=== PATIENT | female | born 1995 | race Two or more races ===

== ENCOUNTER 2022-04-07 14:28 | Emergency (ER) | payer SELFPAY ==
[2022-04-07] MEDS ORDERED: Ketorolac 30 MG/ML SDV IM STA (15:42)
[2022-04-07] MEDS ORDERED: Dexamethasone 4 MG Tab PO STA (16:56)
== END 2022-04-07 17:22 | disposition home or self-care (01) ==
LOC: MW.ED 14:28
DX: J03.90 Acute tonsillitis, unspecified (principal)
CPT/HCPCS: 36415; 86308; 87651; 96372; 99283; J1885; J8540

== ENCOUNTER 2022-06-09 13:41 | Emergency (ER) | payer SELFPAY ==
[2022-06-09] MEDS ORDERED: Acetaminophen/HYDROcodone 325-5 MG Tab PO ONE (16:25)
== END 2022-06-09 16:46 | disposition home or self-care (01) ==
LOC: MW.ED 13:41
DX: T33.822A Superficial frostbite of left foot, initial encounter (principal); T33.821A Superficial frostbite of right foot, initial encounter; X31.XXXA Exposure to excessive natural cold, initial encounter
CPT/HCPCS: 99283; A9270

== ENCOUNTER 2023-04-24 08:41 | Emergency (ER) | payer MEDICAID | END 2023-04-24 11:46 | disposition home or self-care (01) | LOC: MW.ED 08:41 | DX: O20.0 Threatened abortion (principal); Z3A.12 12 weeks gestation of pregnancy; Z79.82 Long term (current) use of aspirin | CPT/HCPCS: 36415; 76801; 76801-26; 86850; 86900; 86901; 99282; 99284; J2790 ==

== ENCOUNTER 2023-09-03 11:00 | Emergency (ER) | payer MEDICAID ==
[2023-09-03] MEDS: Sodium Chloride 0.9% 1,000 ML IV ONE (11:33)
[2023-09-03 11:48] LABS: BASOPHILS ABSOLUTE AUTO 0.04 K/uL (0.00-0.20); BASOPHILS PERCENT AUTO 0.5 % (0.0-1.0); EOSINOPHILS ABSOLUTE AUTO 0.14 K/uL (0.00-0.45); EOSINOPHILS PERCENT AUTO 1.8 % (0.0-6.0); HEMATOCRIT 32.4 % (37.0-47.0); HEMOGLOBIN 10.6 g/dL (12.0-16.0); IMMATURE GRAN ABSOLUTE AUTO 0.04 K/uL (0.00-0.05); IMMATURE GRAN PERCENT AUTO 0.5 % (0.0-0.4); LYMPHOCYTES ABSOLUTE AUTO 1.55 K/uL (1.00-4.80); LYMPHOCYTES PERCENT AUTO 19.5 % (24.0-44.0); MEAN CORPUSCULAR HEMOGLOBIN 26.4 pg (28.0-32.0); MEAN CORPUSCULAR HGB CONC 32.7 g/dL (32.0-36.0); MEAN CORPUSCULAR VOLUME 80.8 fL (83.0-99.0); MONOCYTES ABSOLUTE AUTO 0.26 K/uL (0.00-0.80); MONOCYTES PERCENT AUTO 3.3 % (0.0-8.0); NEUTROPHILS ABSOLUTE AUTO 5.93 K/uL (1.80-7.70); NEUTROPHILS PERCENT AUTO 74.4 % (41.0-71.0); PLATELET COUNT,PLT 290 K/uL (150-400); RED BLOOD CELL COUNT 4.01 M/uL (4.10-5.30); WHITE BLOOD CELL COUNT,WBC 7.96 K/uL (3.9-11.3)
[2023-09-03 11:58] LABS: INR 0.95 (0.86-1.11); PTT,PARTIAL THROMBOPLSTIN TIME 30.5 SEC (23.9-30.7)
[2023-09-03 12:16] LABS: A/G RATIO 0.6 (0.9-1.6); ALBUMIN 2.6 g/dL (3.4-5.0); BILIRUBIN TOTAL 0.4 mg/dL (0.2-1.0); CALCIUM 8.6 mg/dL (8.5-10.1); CARBON DIOXIDE,CO2 21.9 mmol/L (21.0-32.0); CREATININE 0.6 mg/dL (0.6-1.0); EST CRCL DRUG DOSING (CG) 131.85 mL/min; MAGNESIUM 1.8 mg/dL (1.8-2.4); POTASSIUM,K 4.1 mmol/L (3.5-5.1); PROTEIN TOTAL,TP 6.9 g/dL (6.4-8.2); TSH ULTRASENSITIVE 0.95 uIU/mL (0.36-3.74)
[2023-09-03] MEDS: Iopamidol 755 Mg/ML 100 ML Bottle IVPUSH ONE (13:23)
== END 2023-09-03 13:52 | disposition home or self-care (01) ==
LOC: MW.ED 11:00
DX: R51.9 Headache, unspecified (principal); R20.2 Paresthesia of skin; Z79.82 Long term (current) use of aspirin
CPT/HCPCS: 36415; 70496; 80053; 82947; 83735; 84443; 85025; 85610; 85730; 96360; 99284; J7030; Q9967

== ENCOUNTER 2023-10-15 07:23 | Observation (INO) | payer MEDICAID ==
[2023-10-15] MEDS ORDERED: Ondansetron 4 MG/2 ML SDV IVPUSH PRN (09:08)
[2023-10-15] MEDS ORDERED: Misoprostol 200 MCG Tab PO PRN (09:08)
[2023-10-15] MEDS ORDERED: Nalbuphine 10 MG/0.5 ML Syringe IVPUSH PRN (09:08)
[2023-10-15] MEDS ORDERED: Sodium Chloride 0.9% 20 ML SDV IV PRN (09:08)
[2023-10-15] MEDS ORDERED: Lidocaine 1% 50 ML MDV INJECT PRN (09:08)
[2023-10-15] MEDS ORDERED: Water For Irrigation,Sterile 1,000 ML Container IRR PRN (09:08)
[2023-10-15] MEDS ORDERED: Tranexamic Acid IN NACL,ISO-OS 1,000 MG in Premix Bag 1 BAG IV PRN (09:08)
[2023-10-15] MEDS ORDERED: Carboprost Tromethamine 250 MCG/1 mL Vial IM PRN (09:08)
[2023-10-15] MEDS ORDERED: Methylergonovine 0.2 MG/1 ML Amp IM PRN (09:08)
[2023-10-15] MEDS ORDERED: Sodium Chloride 0.9% 2.5 ML Syringe FLUSH PRN (09:08)
[2023-10-15] MEDS ORDERED: Sodium Chloride 0.9% 10 ML Syringe FLUSH PRN (09:08)
[2023-10-15] MEDS ORDERED: Oxytocin/0.9 % Sodium Chloride 30 UNIT/500 ML BAG IV SCH (09:15)
[2023-10-15] MEDS: Lactated Ringers 1,000 ML IV SCH (09:19)
[2023-10-15 10:03] LABS: APPEARANCE,URINE CLEAR; COLOR,URINE YELLOW; GLUCOSE,URINE NEGATIVE (NEGATIVE); KETONES,URINE >=80 mg/dL (NEGATIVE); LEUKOCYTE ESTERASE,URINE NEGATIVE (NEGATIVE); NITRITE,URINE NEGATIVE (NEGATIVE); OCCULT BLOOD,URINE NEGATIVE (NEGATIVE); PH,URINE 6.5 (5.0-8.0); PROTEIN,URINE TRACE mg/dL (NEGATIVE); UROBILINOGEN,URINE 0.2 EU/dL (<2.0)
[2023-10-15 10:03] LABS: HEMATOCRIT 33.9 % (37.0-47.0); HEMOGLOBIN 11.2 g/dL (12.0-16.0); MEAN CORPUSCULAR HEMOGLOBIN 26.4 pg (28.0-32.0); MEAN CORPUSCULAR VOLUME 79.8 fL (83.0-99.0); PLATELET COUNT,PLT 229 K/uL (150-400); RED BLOOD CELL COUNT 4.25 M/uL (4.10-5.30)
[2023-10-15 10:07] LABS: BILIRUBIN,URINE SMALL (NEGATIVE)
[2023-10-15 10:25] LABS: A/G RATIO 0.6 (0.9-1.6); ALBUMIN 2.4 g/dL (3.4-5.0); BILIRUBIN TOTAL 0.4 mg/dL (0.2-1.0); CALCIUM 8.4 mg/dL (8.5-10.1); CARBON DIOXIDE,CO2 19.4 mmol/L (21.0-32.0); CREATININE 0.8 mg/dL (0.6-1.0); EST CRCL DRUG DOSING (CG) 98.01 mL/min; POTASSIUM,K 3.8 mmol/L (3.5-5.1); PROTEIN TOTAL,TP 6.8 g/dL (6.4-8.2)
[2023-10-15] MEDS ORDERED: Acetaminophen 500 MG Tab PO PRN (13:33)
== END 2023-10-15 14:00 | disposition home or self-care (01) ==
LOC: MW.OB 07:23 → MW.OBCHECK 07:23 → MW.OB 09:08 → MW.OBCHECK 10:18
PROVIDERS: ADMIT Obstetrics & Gynecology; ATTEND Obstetrics & Gynecology
DX: E86.0 Dehydration (principal)
CPT/HCPCS: 36415; 59025; 80053; 81003; 84112; 85027; 86592; 86850; 86900; 86901; 96360; 96361; G0378; J7120; 99221

== ENCOUNTER 2023-10-19 17:59 | Inpatient (IN) | payer MEDICAID ==
[2023-10-19] MEDS ORDERED: Ondansetron 4 MG/2 ML SDV IVPUSH PRN (18:12)
[2023-10-19] MEDS ORDERED: Carboprost Tromethamine 250 MCG/1 mL Vial IM PRN (18:12)
[2023-10-19] MEDS ORDERED: Methylergonovine 0.2 MG/1 ML Amp IM PRN ×2 (18:12→23:32)
[2023-10-19] MEDS ORDERED: Sodium Chloride 0.9% 20 ML SDV IV PRN (18:12)
[2023-10-19] MEDS ORDERED: Sodium Chloride 0.9% 10 ML Syringe FLUSH PRN (18:12)
[2023-10-19] MEDS ORDERED: Water For Irrigation,Sterile 1,000 ML Container IRR PRN (18:12)
[2023-10-19] MEDS ORDERED: Sodium Chloride 0.9% 2.5 ML Syringe FLUSH PRN (18:12)
[2023-10-19] MEDS ORDERED: Tranexamic Acid IN NACL,ISO-OS 1,000 MG in Premix Bag 1 BAG IV PRN ×2 (18:12→23:32)
[2023-10-19] MEDS ORDERED: Butorphanol 2 MG/ML SDV IVPUSH PRN (18:12)
[2023-10-19] MEDS ORDERED: Misoprostol 200 MCG Tab PO PRN (18:12)
[2023-10-19 18:43] LABS: HEMATOCRIT 36.1 % (37.0-47.0); HEMOGLOBIN 11.9 g/dL (12.0-16.0); MEAN CORPUSCULAR HEMOGLOBIN 26.2 pg (28.0-32.0); MEAN CORPUSCULAR VOLUME 79.3 fL (83.0-99.0); MEAN PLATELET VOLUME 9.9 fL (9.4-12.3); PLATELET COUNT,PLT 256 K/uL (150-400); RED BLOOD CELL COUNT 4.55 M/uL (4.10-5.30); WHITE BLOOD CELL COUNT,WBC 9.16 K/uL (3.9-11.3)
[2023-10-19] MEDS ORDERED: ePHEDrine 50 MG/ML SDV IVPUSH PRN ×2 (19:53)
[2023-10-19] MEDS ORDERED: Phenylephrine HCl In 0.9% NaCl 1 MG/10 ML Syringe IVPUSH PRN (19:53)
[2023-10-19] MEDS ORDERED: Ropivacaine HCl/PF 400 MG in Premix Bag 1 BAG EPIDUR SCH (20:00)
[2023-10-19] MEDS: Lidocaine 1% 50 ML MDV INJECT PRN (22:50)
[2023-10-19] MEDS: Oxytocin/0.9 % Sodium Chloride 30 UNIT/500 ML BAG IV SCH (23:05)
[2023-10-19] MEDS ORDERED: Docusate Sodium 100 MG Cap PO PRN (23:32)
[2023-10-19 23:47] LABS: PH,UMBILICAL ARTERIAL 7.224 (7.18-7.38); PH,UMBILICAL VENOUS 7.303 (7.25-7.45)
[2023-10-20] MEDS: Acetaminophen 500 MG Tab PO PRN (01:19)
[2023-10-20] MEDS: Ibuprofen 800 MG Tab PO PRN (01:20)
[2023-10-20] MEDS: Benzocaine/Menthol 20%-0.5% Spray 78 GM Cannister TOP PRN (01:21)
[2023-10-20] MEDS: Witch Hazel Medicated Pads 40/Jar TOP PRN (01:22)
[2023-10-20] MEDS: Lanolin 100% Cream 7 GM Tube TOP PRN (01:22)
[2023-10-20] MEDS: Oxytocin/0.9 % Sodium Chloride 30 UNIT/500 ML BAG ONE (03:27)
[2023-10-20] MEDS: Lactated Ringers 1,000 ML IV SCH (03:29)
[2023-10-20 03:35] LABS: HEMATOCRIT 27.9 % (37.0-47.0); HEMOGLOBIN 9.2 g/dL (12.0-16.0); MEAN CORPUSCULAR VOLUME 78.8 fL (83.0-99.0); MEAN PLATELET VOLUME 9.6 fL (9.4-12.3); PLATELET COUNT,PLT 183 K/uL (150-400); RED BLOOD CELL COUNT 3.54 M/uL (4.10-5.30); WHITE BLOOD CELL COUNT,WBC 10.85 K/uL (3.9-11.3)
[2023-10-20 04:05] LABS: A/G RATIO 0.5 (0.9-1.6); ALBUMIN 1.8 g/dL (3.4-5.0); BILIRUBIN TOTAL 0.3 mg/dL (0.2-1.0); CALCIUM 8.1 mg/dL (8.5-10.1); CARBON DIOXIDE,CO2 17.4 mmol/L (21.0-32.0); CREATININE 0.9 mg/dL (0.6-1.0); EST CRCL DRUG DOSING (CG) 87.12 mL/min; POTASSIUM,K 3.6 mmol/L (3.5-5.1); PROTEIN TOTAL,TP 5.6 g/dL (6.4-8.2)
[2023-10-20 04:11] LABS: INR 0.96 (0.86-1.11); PTT,PARTIAL THROMBOPLSTIN TIME 36.3 SEC (23.9-30.7)
[2023-10-20 06:08] LABS: HEMATOCRIT 22.9 % (37.0-47.0); HEMOGLOBIN 7.5 g/dL (12.0-16.0)
[2023-10-20] MEDS: Sodium Ferric Gluconate Cmplex 125 MG in Sodium Chloride 0.9% 100 ML IV ONE (10:20)
[2023-10-20] MEDS: Prenatal Multivitamin with Calcium/Folic Acid/Iron Tab PO SCH (10:22)
[2023-10-20 15:09] LABS: HEMOGLOBIN 6.7 g/dL (12.0-16.0)
[2023-10-21 06:15] LABS: HEMATOCRIT 26.6 % (37.0-47.0); HEMOGLOBIN 9.1 g/dL (12.0-16.0)
== END 2023-10-21 15:00 | disposition home or self-care (01) | DRG 806 ==
LOC: MW.OB 17:59 → MW.OBCHECK 17:59 → MW.OB 18:34 → OBSVTOIN 23:03 → MW.OB 10-20 02:15
PROVIDERS: ADMIT Obstetrics & Gynecology; ATTEND Obstetrics & Gynecology Obstetrics
PROC: 10E0XZZ Delivery of Products of Conception, External Approach (ICD-10-PCS; principal; 2023-10-19)
PROC: 10907ZC Drainage of Amniotic Fluid, Therapeutic from Products of Conception, Via Natural or Artificial Opening (ICD-10-PCS; 2023-10-19)
PROC: 30233N1 Transfusion of Nonautologous Red Blood Cells into Peripheral Vein, Percutaneous Approach (ICD-10-PCS; 2023-10-19)
PROC: 3E033VJ Introduction of Other Hormone into Peripheral Vein, Percutaneous Approach (ICD-10-PCS; 2023-10-19)
DX: O99.02 Anemia complicating childbirth (principal); D62 Acute posthemorrhagic anemia; Z37.0 Single live birth; O72.1 Other immediate postpartum hemorrhage; Z3A.38 38 weeks gestation of pregnancy
CPT/HCPCS: 36415; 36430; 59025; 80053; 82803; 85014; 85018; 85027; 85384; 85610; 85730; 86592; 86850; 86900; 86901; 86920; A9270-GY; J2001; J2590; J2916; J3490; J7120; P9016

== ENCOUNTER 2023-10-21 21:21 | Emergency (ER) | payer MEDICAID ==
[2023-10-21 22:13] LABS: BASOPHILS ABSOLUTE AUTO 0.03 K/uL (0.00-0.20); BASOPHILS PERCENT AUTO 0.3 % (0.0-1.0); EOSINOPHILS ABSOLUTE AUTO 0.04 K/uL (0.00-0.45); EOSINOPHILS PERCENT AUTO 0.4 % (0.0-6.0); HEMATOCRIT 28.1 % (37.0-47.0); HEMOGLOBIN 9.4 g/dL (12.0-16.0); IMMATURE GRAN ABSOLUTE AUTO 0.13 K/uL (0.00-0.05); IMMATURE GRAN PERCENT AUTO 1.2 % (0.0-0.4); LYMPHOCYTES ABSOLUTE AUTO 2.87 K/uL (1.00-4.80); LYMPHOCYTES PERCENT AUTO 27.5 % (24.0-44.0); MEAN CORPUSCULAR HEMOGLOBIN 27.6 pg (28.0-32.0); MEAN CORPUSCULAR HGB CONC 33.5 g/dL (32.0-36.0); MEAN CORPUSCULAR VOLUME 82.6 fL (83.0-99.0); MEAN PLATELET VOLUME 9.8 fL (9.4-12.3); MONOCYTES PERCENT AUTO 4.8 % (0.0-8.0); NEUTROPHILS ABSOLUTE AUTO 6.88 K/uL (1.80-7.70); NEUTROPHILS PERCENT AUTO 65.8 % (41.0-71.0); NRBC ABSOLUTE 0.03 K/uL (0.00-0.02); NRBC PERCENT 0.3 /100WBC (0.0-0.2); PLATELET COUNT,PLT 177 K/uL (150-400); WHITE BLOOD CELL COUNT,WBC 10.45 K/uL (3.9-11.3)
[2023-10-21 22:26] LABS: INR 0.93 (0.86-1.11)
[2023-10-21 22:42] LABS: A/G RATIO 0.5 (0.9-1.6); ALBUMIN 1.9 g/dL (3.4-5.0); BILIRUBIN TOTAL 0.2 mg/dL (0.2-1.0); CALCIUM 7.8 mg/dL (8.5-10.1); CARBON DIOXIDE,CO2 22.4 mmol/L (21.0-32.0); CREATININE 0.6 mg/dL (0.6-1.0); EST CRCL DRUG DOSING (CG) 130.68 mL/min; POTASSIUM,K 3.6 mmol/L (3.5-5.1); PROTEIN TOTAL,TP 5.6 g/dL (6.4-8.2)
== END 2023-10-21 23:14 | disposition home or self-care (01) ==
LOC: MW.ED 21:21
DX: O72.1 Other immediate postpartum hemorrhage (principal); Z79.899 Other long term (current) drug therapy; Z75.8 Other problems related to medical facilities and other health care
CPT/HCPCS: 36415; 80053; 84702; 85025; 85610; 86850; 86900; 86901; 99282; 99284